=== PATIENT | female | born 1985 | race American Indian/Alaskan Native ===

== ENCOUNTER 2016-06-25 05:04 | Emergency (ER) | payer SELFPAY ==
[2016-06-25 05:56] VITALS: BP 137/77
[2016-06-25 06:44] LABS: Basophils % (Auto) 0.2 % (0.0-1.8); Eosinophils % (Auto) 0.1 % (0.0-4.3); Hematocrit 38.5 % (30.3-42.9); Hemoglobin 13.1 gm/dl (10.1-14.3); Mean Corpuscular HGB Conc 34 % (30-34); Mean Corpuscular Hemoglobin 32 pg (28-32); Mean Corpuscular Volume 94 fl (79-97); Platelet Count 249 K/mm3 (140-440); Red Blood Count 4.09 M/mm3 (3.65-5.03); White Blood Count 12.7 K/mm3 (4.5-11.0)
[2016-06-25 06:47] LABS: BUN/Creatinine Ratio 12.85; Blood Urea Nitrogen 9 mg/dL (7-17); Calcium 8.7 mg/dL (8.4-10.2); Carbon Dioxide 20 mmol/L (22-30); Chloride 102.8 mmol/L (98-107); Glucose 129 mg/dL (65-100); Potassium 3.6 mmol/L (3.6-5.0); Sodium 139 mmol/L (137-145)
[2016-06-25 06:50] LABS: Anion Gap 20 mmol/L
--- NOTE | 2016-06-25 19:36 | ED Elopement Review ---
ED Pt Elopement review - Results review Lab results: Laboratory Tests 06/25/16 06/25/16 06:14 06:14 WBC 12.7 H RBC 4.09 Hgb 13.1 Hct 38.5 MCV 94 MCH 32 MCHC 34 RDW 13.0 L Plt Count 249 Lymph % (Auto) 7.9 L Owen % (Auto) 5.2 Eos % (Auto) 0.1 Baso % (Auto) 0.2 Lymph # 1.0 L Owen # 0.7 Eos # 0.0 Baso # 0.0 Seg Neutrophils % 86.6 H Seg Neutrophils # 11.0 H Sodium 139 Potassium 3.6 Chloride 102.8 Carbon Dioxide 20 L Anion Gap 20 BUN 9 Creatinine 0.7 Estimated GFR > 60 BUN/Creatinine Ratio 12.85 Glucose 129 H Calcium 8.7 Troponin T < 0.010 - Call Back decision Pt Call Back Decision: No action required
== END 2016-06-25 06:15 | disposition left against medical advice (07) ==
LOC: ED 05:04
DX: R11.10 Vomiting, unspecified (principal); R10.9 Unspecified abdominal pain; Z53.21 Procedure and treatment not carried out due to patient leaving prior to being seen by health care provider
CPT/HCPCS: 36415; 80048; 84484; 85025; 93005; 93010

== ENCOUNTER 2021-06-06 09:32 | Emergency (ER) | payer BC ==
[2021-06-06 09:36] VITALS: BP 118/71
--- NOTE | 2021-06-06 10:24 | Emergency Department Report ---
Upper Extremity - HPI Chief Complaint: Extremity Injury, Upper Stated Complaint: BROKEN ARM Time Seen by Provider: 06/06/21 09:50 Upper Extremity: Right Forearm Occurred When: Today Symptoms: Yes Pain with Movement, Yes Limited Range of Movement Other History: 36-year-old -[place] female presents to the emergency room complaining of right forearm pain and injury after falling out the tub. Patient states this happened this morning. She denies hitting her head denies any loss of consciousness no symptoms of dizziness prior to her fall. ED Review of Systems ROS: Stated complaint: BROKEN ARM Other details as noted in HPI Comment: All other systems reviewed and negative ED Past Medical Hx - Past Medical History Hx GERD: Yes Hx Psychiatric Treatment: Yes (ANXIETY; DEPRESSION; BIPOLAR) Additional medical history: IBS, cyclic vomiting syndrome - Surgical History Additional Surgical History: Laparoscopy - Social History Smoking Status: Current Every Day Smoker Substance Use Type: Alcohol - Medications Home Medications: Home Medications Medication Instructions Recorded Confirmed Last Taken Type ALPRAZolam [Xanax TAB] 0.5 mg PO BID 02/21/15 05/11/15 02/20/15 History PARoxetine [Paxil] 20 mg PO QDAY 02/21/15 05/11/15 02/20/15 History Quetiapine Fumarate (Nf) [SEROquel 150 mg PO QDAY 05/11/15 05/11/15 Unknown History XR] Dicyclomine [Bentyl] 10 mg PO QID PRN #20 capsule 07/03/15 Unknown Rx Ketorolac [Toradol] 10 mg PO Q6H PRN #20 tablet 07/03/15 Unknown Rx Ondansetron [Zofran Odt] 4 mg PO QID PRN #20 tab.rapdis 07/03/15 Unknown Rx traMADoL [Ultram 50 MG tab] 50 mg PO Q6HR PRN #10 tablet 07/04/15 Unknown Rx HYDROcodone/APAP 7.5-325 [Brandywine 1 each PO Q6HR PRN #15 tablet 06/06/21 Unknown Rx 7.5/325] Ibuprofen [Motrin 800 MG tab] 800 mg PO Q8HR PRN #30 tablet 06/06/21 Unknown Rx Upper Extremity Exam - Exam General: Vital signs noted. No distress. Alert and acting appropriately. Head and Torso: No HEENT Abnormality, No Neck Tenderness, No Chest/Lungs Abnormality, No Abdominal Tenderness, No Back Tenderness Shoulder Exam: Yes Normal Range of Motion in Shoulder, No Shoulder Tenderness, No Clavicle Tenderness, No Shoulder Deformity, No AC Joint Tenderness Arm Exam: Yes Arm/Humerus Tenderness, No Arm Deformity Elbow: No Elbow Tenderness, No Normal Range of Motion in Elbow, No Elbow Deformity Forearm: No Forearm Tenderness, No Forearm Deformity, No Pain with Pronation, No Pain with Supination Wrist: Yes Wrist Tenderness, Yes Normal ROM in Wrist Hand: Yes Normal ROM in Digit(s), No Hand Tenderness, No Hand Deformity, No Digi t Tenderness, No Digit(s) Deformity, No Tendon Dysfunction CMS Exam: No Broken Skin, No Normal Distal Pulses, No Normal Capillary Refill, No Normal Distal Sensation ED Course Vital Signs 06/06/21 09:35 Temperature 98.4 F Pulse Rate 69 Respiratory 16 Rate Blood Pressure 118/71 O2 Sat by Pulse 100 Oximetry ED Medical Decision Making - Radiology Data Radiology results: [place] [address] XRay Report Signed Patient: CHRISTIAN TRAN MR#: [id number] : 1985 Acct:[id number] Age/Sex: 36 / F ADM Date: 06/06/21 Loc: ED Attending Dr: Ordering Physician: CHENG ROSA Date of Service: 06/06/21 Procedure(s): XR forearm RT Accession Number(s): [id number] cc: CHENG ROSA Fluoro Time In Minutes: RIGHT FOREARM 2 VIEWS INDICATION: fall ijury to rt foream. COMPARISON: None. IMPRESSION: Subtle nondisplaced spiral fracture is identified in the distal ulnar shaft. The radius is intact. No joint pathology is appreciated. There is mild soft tissue swelling of the distal forearm. Signer Name: Aldo Márquez Jr, MD Signed: 06/06/2021 10:43 AM Workstation Name: [id number] Transcribed By: TTR Dictated By: ALDO MÁRQUEZ JR, MD Electronically Authenticated By: ALDO MÁRQUEZ JR, MD Signed Date/Time: 06/06/21 1043 DD/ 1042 TD/TT: Print Cancel - Medical Decision Making 36-year-old -[place] female presents to the emergency room complaining of right forearm pain and injury after falling out the tub. Patient states this happened this morning. She denies hitting her head denies any loss of consc iousness no symptoms of dizziness prior to her fall. X-ray of right forearm shows a mall displaced spiral fracture of the ulnar bone. Patient be placed in a sugar tong pain medication referral to orthopedics. Critical care attestation.: If time is entered above; I have spent that time in minutes in the direct care of this critically ill patient, excluding procedure time. ED Disposition Clinical Impression: Forearm fracture Qualifiers: Encounter type: initial encounter Fracture type: closed Laterality: right Qualified Code(s): S52.91XA - Unspecified fracture of right forearm, initial encounter for closed fracture Disposition: HOME / SELF CARE / HOMELESS Is pt being admited?: No Does the pt Need Aspirin: No Condition: Stable Instructions: Cast or Splint Care, Adult, [id number], Ulnar Fracture Rehab- [facility] Additional Instructions: X-ray shows you have a fracture of your right ulnar bone in your forearm. I recommend pain medication increase your fluid intake do not operate heavy machinery while taking the Brandywine. Is very important you follow-up with orth opedist as this is a temporary splint and you would need a cast. Prescriptions: Ibuprofen [Motrin 800 MG tab] 800 mg PO Q8HR PRN #30 tablet PRN Reason: Pain , Severe (7-10) HYDROcodone/APAP 7.5-325 [Brandywine 7.5/325] 1 each PO Q6HR PRN #15 tablet PRN Reason: Pain Referrals: YUSUF NIX MD [Primary Care Provider] - 3-5 Days CAROL MADDEN MD [Staff Physician] - 3-5 Days Forms: Work/School Release Form(ED) Time of Disposition: 11:11
--- NOTE | 2021-06-06 10:48 | XRay Report ---
RIGHT FOREARM 2 VIEWS INDICATION: fall ijury to rt foream. COMPARISON: None. IMPRESSION: Subtle nondisplaced spiral fracture is identified in the distal ulnar shaft. The radius is intact. No joint pathology is appreciated. There is mild soft tissue swelling of the distal forea rm. Signer Name: Aldo Márquez Jr, MD Signed: 06/06/2021 10:43 AM Workstation Name: [id number]
== END 2021-06-06 12:49 | disposition home or self-care (01) ==
LOC: ED 09:32
DX: S52.91XA Unspecified fracture of right forearm, initial encounter for closed fracture (principal); F17.200 Nicotine dependence, unspecified, uncomplicated; F10.20 Alcohol dependence, uncomplicated; W19.XXXA Unspecified fall, initial encounter; Y93.89 Activity, other specified; Y92.89 Other specified places as the place of occurrence of the external cause; Y99.8 Other external cause status
CPT/HCPCS: 99283

== ENCOUNTER 2021-06-23 09:54 | Outpatient (CLI) | payer BC ==
--- NOTE | 2021-06-23 12:15 | XRay Report ---
Right forearm 2 views INDICATION: Fracture FINDINGS: Fracture deformity within the ulnar again seen. There is interval healing of the midshaft f racture deformity. Fracture lucency in the distal third of the ulna is unchanged. Signer Name: Chin Fisher MD Signed: 06/23/2021 12:11 PM Workstation Name: [id number]
== END 2021-06-23 09:55 | disposition home or self-care (01) ==
LOC: XRAY 09:54
PROVIDERS: ATTEND Orthopaedic Surgery
DX: S53.441D Ulnar collateral ligament sprain of right elbow, subsequent encounter (principal); X58.XXXD Exposure to other specified factors, subsequent encounter

== ENCOUNTER 2021-07-07 09:11 | Outpatient (CLI) | payer BC ==
--- NOTE | 2021-07-07 10:35 | XRay Report ---
RIGHT FOREARM 2 VIEW(S) INDICATION / CLINICAL INFORMATION: UNSPECIFIED FRACTURE OF SHAFT OF RIGHT ULNA S52.201 COMPARISON: 06/23/21 FINDINGS: BONES / JOINT(S): Minimal interval healing of the oblique fracture of the distal ulnar shaft. Solid o sseous healing of the mid shaft fracture. No significant arthritis. SOFT TISSUES: No significant abnormality. ADDITIONAL FINDINGS: Right forearm remains in fiberglass splint. Signer Name: Karen Sharp MD Signed: 07/07/2021 10:30 AM Workstation Name: [id number]
== END 2021-07-07 09:12 | disposition home or self-care (01) ==
LOC: XRAY 09:11
PROVIDERS: ATTEND Orthopaedic Surgery
DX: S52.231D Displaced oblique fracture of shaft of right ulna, subsequent encounter for closed fracture with routine healing (principal); X58.XXXD Exposure to other specified factors, subsequent encounter

== ENCOUNTER 2021-07-21 10:11 | Outpatient (CLI) | payer BC ==
--- NOTE | 2021-07-21 11:54 | XRay Report ---
RIGHT FOREARM 2 VIEW(S) INDICATION / CLINICAL INFORMATION: UNSPEC. FRACTURE OF SHAFT OF RT ULNA COMPARISON: 07/07/21 FINDINGS: BONES / JOINT(S): Progression of healing of the midshaft and distal shaft ulnar fractures. Interval r emoval of glass splint. No significant arthritis. SOFT TISSUES: No significant abnormality. ADDITIONAL FINDINGS: None. Signer Name: Karen Sharp MD Signed: 07/21/2021 11:50 AM Workstation Name: [id number]
== END 2021-07-21 10:12 | disposition home or self-care (01) ==
LOC: XRAY 10:11
PROVIDERS: ATTEND Orthopaedic Surgery
DX: S52.201D Unspecified fracture of shaft of right ulna, subsequent encounter for closed fracture with routine healing (principal); X58.XXXD Exposure to other specified factors, subsequent encounter

== ENCOUNTER 2021-08-11 10:09 | Outpatient (CLI) | payer BC ==
--- NOTE | 2021-08-11 11:24 | XRay Report ---
XR forearm RT INDICATION / CLINICAL INFORMATION: S52.201A UNSPECIFIED FRACTURE OF SHAFT OF RIGHT ULNA. COMPARISON: 07/21/2021 FINDINGS: BONES/JOINT(S): Continued progression of healing in the distal ulnar shaft fracture. No new acute fin dings. SOFT TISSUES: No significant abnormality. ADDITIONAL FINDINGS: None. Signer Name: Ross Bliss MD Signed: 08/11/2021 11:19 AM Workstation Name: [email or web address]
== END 2021-08-11 10:10 | disposition home or self-care (01) ==
LOC: XRAY 10:09
PROVIDERS: ATTEND Orthopaedic Surgery
DX: S52.601D Unspecified fracture of lower end of right ulna, subsequent encounter for closed fracture with routine healing (principal); X58.XXXD Exposure to other specified factors, subsequent encounter